=== PATIENT | male | born 1950 | race Caucasian/White ===

== ENCOUNTER 2019-12-12 22:05 | Outpatient (REF) | payer OTHER, SELFPAY ==
[2019-12-12 22:39] LABS: Anion Gap 7.5 mmol/L (3-11); BUN 22 mg/dL (7-18); CO2 27.5 mmol/L (21.0-32.0); CREATININE 0.97 mg/dL (0.70-1.30); Calcium 8.6 mg/dL (8.5-10.1); Calculated LDL 99 mg/dL (<100); Chloride 106 mmol/L (98-107); Cholesterol 186 mg/dL (<200); Glucose 103 mg/dL (74-106); HDL Cholesterol 52 mg/dL (40-60); Potassium 4.2 mmol/L (3.5-5.1); Sodium 141 mmol/L (136-145); TSH 7.68 uIU/mL (0.36-3.74); Triglyceride 176 mg/dL (<150)
== END 2019-12-12 22:25 ==
LOC: NCHCN 22:05
PROVIDERS: Visit Provider Registered Nurse
DX: R94.6 Abnormal results of thyroid function studies (principal); E78.89 Other lipoprotein metabolism disorders; E66.9 Obesity, unspecified; Z86.39 Personal history of other endocrine, nutritional and metabolic disease
CPT/HCPCS: 80048; 80061; 84443

== ENCOUNTER 2020-10-14 13:21 | Outpatient (REF) | payer OTHER, SELFPAY ==
[2020-10-14 21:15] LABS: FREE T4 1.03 ng/dL (0.76-1.46); TSH 5.38 uIU/mL (0.36-3.74)
== END 2020-10-14 13:22 | disposition home or self-care (01) ==
LOC: NCHCN 13:21
PROVIDERS: Visit Provider Internal Medicine
DX: E30.9 Disorder of puberty, unspecified (principal)
CPT/HCPCS: 84439; 84443

== ENCOUNTER 2021-10-26 10:47 | Outpatient (REF) | payer MEDICARE, SELFPAY ==
[2021-10-26 14:43] LABS: TSH (W/Ref FT4) 7.32 uIU/mL (0.36-3.74)
[2021-10-26 15:12] LABS: FREE T4 1.04 ng/dL (0.76-1.46)
[2021-10-26 15:24] LABS: Hemoglobin A1C 5.9 % (<5.7)
== END 2021-10-26 10:48 | disposition home or self-care (01) ==
LOC: NCHCN 10:47
PROVIDERS: PCP Family Medicine; Visit Provider Family Medicine
DX: E03.9 Hypothyroidism, unspecified (principal); R73.09 Other abnormal glucose
CPT/HCPCS: 83036; 84439; 84443

== ENCOUNTER 2022-08-30 19:54 | Outpatient (REF) | payer MEDICARE, SELFPAY ==
--- OUTSIDE RECORDS SUMMARY | 2022-08-30 19:56 | XMS_ITS ---
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) Z02.4 [facility] [address] [place], [place] [id number] Aug, IMMUNIZATIONS Vaccine Route Administration Date Status Covid-19 Pfizer BioNTech Biv alent Booster 12+ Unknown Mar 16, 2022 Administered Covid-19 Moderna Booster Unknown October 26, 2021 Adm inistered Covid-19 Moderna Booster Unknown May 05, 2021 Adm inistered Covid-19 Moderna Dose 2 Unknown September 24, 2020 Ad ministered Covid-19 Moderna Dose 1 Unknown August 27, 2020 Ad ministered Td Unknown October 26, 2021 Administered Influenza >6 months Unknown Apr 22, 2022 Administ ered Zoster Unknown Mar 16, 2012 Administered SOCIAL HISTORY Never Assessed REASON FOR REFERRAL FUNCTIONAL STATUS PLAN OF CARE VITAL SIGNS Temperature 98.2 degrees Fahrenheit Height 72.6 in 2022-08-24 Weight 198.2 lbs 2022-08-24 BMI 26.44 2022-08-24 Heart Rate 84 /min 2022-08-24 Blood pressure systolic 122 mmHg Blood pressure diastolic 74 mmHg 2022-07 MEDICATIONS No Known Medications PROCEDURES Procedure Date Ordered Result 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
[2022-08-30 21:21] LABS: Hemoglobin A1C 5.7 % (<5.7)
[2022-08-30 21:31] LABS: TSH (W/Ref FT4) 8.66 uIU/mL (0.36-3.74)
[2022-08-30 22:14] LABS: FREE T4 0.99 ng/dL (0.76-1.46)
== END 2022-08-30 19:55 | disposition home or self-care (01) ==
LOC: NCHCN 19:54
PROVIDERS: PCP Family Medicine; Visit Provider Family Medicine
DX: E03.9 Hypothyroidism, unspecified (principal); R73.09 Other abnormal glucose
CPT/HCPCS: 83036; 84439; 84443